=== PATIENT | male | born 1980 | race Caucasian/White ===

== ENCOUNTER 2024-05-08 15:18 | Emergency (ER) | payer MEDICAID, OTHER ==
[~2024-05-08] VITALS: Ht 172.7 cm; Wt 115.0 kg
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
[2024-05-08 16:11] LABS: Basophils # (auto) 0.1 10 ^3/uL (0-0.2); Basophils % (auto) 0.5 % (0.0-2.0); Eosinophils # (auto) 0.1 10 ^3/uL (0-0.8); Hematocrit 49.7 % (41.0-53.0); Hemoglobin 16.7 g/dL (13.5-17.5); Lymphocytes # (auto) 2.8 10 ^3/uL (0.4-5.4); Lymphocytes % (auto) 27.8 % (10.0-50.0); Mean Corpuscular Hemoglobin 32.8 pg (28.0-32.0); Mean Corpuscular Hgb Conc. 33.6 g/dL (32.0-36.0); Mean Corpuscular Volume 97.6 fL (80.0-100.0); Monocytes # (auto) 0.8 10 ^3/uL (0-1.3); Monocytes % (auto) 8.5 % (0.0-12.0); Neutrophils # (auto) 6.2 10 ^3/uL (1.6-8.6); Neutrophils % (auto) 62.2 % (37.0-80.0); Nucleated Red Blood Cells % 0.1 %; Platelet Count (auto) 266 10^3/uL (140-450); White Blood Cell 9.9 10^3/uL (4.4-10.8)
--- NOTE | 2024-05-08 16:27 | DVH ---
CLINICAL INDICATION: injury TECHNIQUE: 3-view right foot XY R ANKLE 3 VIEW Comparison: None FINDINGS/IMPRESSION: : There is a fracture of the medial cuneiform of the right foot which is mildly distracted.
--- NOTE | 2024-05-08 16:27 | DVH ---
CLINICAL INDICATION: injury TECHNIQUE: XY R ANKLE 3 VIEW Comparison: None FINDINGS/IMPRESSION: : There is no evidence of acute fracture or dislocation. Soft tissues are unremarkable.
[2024-05-08 16:38] LABS: Calcium 10.7 mg/dL (8.7-10.4); Chloride 102 mmol/L (98-107); Potassium 4.2 mmol/L (3.5-5.1); Sodium 140 mmol/L (136-145)
--- NOTE | 2024-05-08 16:43 | DVH ---
Right lower extremity venous duplex Clinical History: pain swelling injury Comparison: None Technique: Duplex Doppler evaluation of the deep venous system of the right lower extremity from the common femo ral vein to the popliteal vein including color Doppler and spectral/pulsed waveform analysis was perf ormed. Findings: The common femoral vein demonstrates appropriate compressibility and waveform variability. There is compressibility/patency of the great saphenous vein at the proximal thigh. The femoral vein demonstrates appropriate compressibility and waveform variability. The deep femoral vein demonstrates appropriate compressibility and waveform variability. The popliteal vein demonstrates appropriate compressibility and waveform variability. There is normal compressibility at the tibioperoneal trunk. Impression: 1. No right femoropopliteal venous thrombosis. 2. Contralateral common femoral vein is patent.
[2024-05-08 16:48] LABS: Aspartate Aminotransferase 20 U/L (13-40)
[2024-05-08 16:49] LABS: Alanine Aminotransferase 33 U/L (7-40); Albumin 5.1 g/dL (3.2-4.8)
[2024-05-08 16:57] LABS: Anion Gap 12 (5-15); Carbon Dioxide 26 mmol/L (20-31)
[2024-05-08 17:05] LABS: Lactic Acid w/Reflex 3.1 mmol/L (0.4-2.0)
[2024-05-08 17:11] LABS: Alkaline Phosphatase 88 U/L (46-116); BUN/Creatinine Ratio 15.8 (10.0-20.0); Blood Urea Nitrogen 19 mg/dL (9-23); Glucose 124 mg/dL (74-106)
[2024-05-08 17:12] LABS: Bilirubin, Total 0.8 mg/dL (0.2-1.0); CRP High Sensitivity 0.65 mg/dL (<1.0); Total Protein 7.5 g/dL (5.7-8.2)
[2024-05-08 17:32] LABS: Erythrocyte Sedimentation Rate 8 mm/hr (0-20)
[2024-05-08] MEDS: SODIUM CHLORIDE 0.9% 1,000 ML IV ONE (20:45)
[2024-05-08 20:56] VITALS: BP 118/70; TEMP 98.6
[2024-05-08 21:10] VITALS: PULSE 94; RESP 20; O2SAT 95
== END 2024-05-08 22:59 | disposition home or self-care (01) ==
LOC: ER 15:27
DX: S92.241A Displaced fracture of medial cuneiform of right foot, initial encounter for closed fracture (principal); Z98.890 Other specified postprocedural states; X58.XXXA Exposure to other specified factors, initial encounter; Y93.89 Activity, other specified; Y92.89 Other specified places as the place of occurrence of the external cause; Y99.8 Other external cause status
CPT/HCPCS: 29515; 36415; 73610; 73630; 80053; 82550; 83605; 84484; 85025; 85652; 86141; 93971; 96360; 99284; J7030

== ENCOUNTER 2024-05-14 07:58 | Emergency (ER) | payer MEDICAID ==
[~2024-05-14] VITALS: Ht 172.7 cm; Wt 106.3 kg
--- NOTE | 2024-05-14 08:49 | ED.PDOC ---
Musculoskeletal HPI Comments 43 year old male presents for follow up on recent fracture Seen 05/08 for a right medial cuneiform of the right foot Has not seen PCP Denies any complaint Chief Complaint: Lower Extremity Time Seen by MD: 08:31 Primary Care Provider: NONE Reviewed Notes: Nurses Notes, Medications, Allergies Allergies: Coded Allergies: NO KNOWN ALLERGIES (Unverified , 05/08/24) Information Source: Patient Mode of Arrival: Ambulatory Past Medical History PAST MEDICAL HISTORY: Denies Surgical History: Denies all surgeries Family History Family History: Unknown Social History Smoker: Unknown Alcohol: Unknown Drugs: Unknown Lives In: Home All Other Systems: Reviewed and Negative (Per HPI) Physical Exam General Appearance: No Apparent Distress, Normal HEENT: Normal ENT Inspection, Pharynx Normal, TMs Normal Neck: Full Range of Motion, Non-Tender, Normal, Normal Inspection Respiratory: Chest Non-Tender, Lungs Clear, No Accessory Muscle Use, No Respiratory Distress, Normal Breath Sounds Cardiovascular: No Murmur, No Gallop, Regular Rate/Rhythm Breast Exam: Deferred Gastrointestinal: No Organomegaly, Non Tender, No Pulsatile Mass, Normal Bowel Sounds, Soft Genitalia: Deferred Pelvic: Deferred Rectal: Deferred Extremities: No calf tenderness, Normal capillary refill, Normal inspection, Normal range of motion, Non-tender, No pedal edema Musculoskeletal : Location: Right Extremity Location: Foot (Splint in place. Neuro sensation intact) Apperance: Normal Neurologic: Alert, No Motor Deficits, Normal Affect, Normal Mood, No Sensory Deficits Cerebellar Function: Normal Reflexes: Normal Skin: Dry, Normal Color, Warm Lymphatic: No Adenopathy Was a procedure done? Was a procedure done?: No Differential Diagnosis EXT Differential Diagnosis: Fracture X-Ray, Labs, Meds, VS Vital Signs Date Time Temp Pulse Resp B/P (MAP) Pulse Ox O2 Delivery O2 Flow Rate FiO2 05/14/24 08:50 119 16 96 Room Air 05/14/24 08:50 98.6 119 16 138/78 (98) 96 98.6 05/14/24 08:04 98.6 119 16 138/78 (98) 96 98.6 X-Ray, Labs, Meds, VS Comment Patient is stable for discharge at this time. External notes reviewed. Test results and diagnostic imaging interpreted. All diagnostic findings, discharge care, education and instructions provided Follow-up with PCP in 2 to 3 days Patient verbalized understanding and agreed to treatment plan Vital signs stable, afebrile, no acute distress noted Patient ambulatory with strong steady gait Advised to return precautions for any new or worsening symptoms, return to ER immediately for re-evaluation Patient is aware that the purpose of this visit was for an acute medical emergency requiring emergent stabilization. Chronic conditions, including malignancies have not been ruled out. Patient is instructed to follow up with PCP as directed and discharge instructions for continued care and workup. If unable to arrange follow-up, patient is to return to the emergency department for reassessment. Patient (parent or legal guardian if applicable) was given verbal and written discharge instructions and acknowledges understanding. Time of 1ST Reevaluation: 08:48 Reevaluation 1ST: Improved Patient Education/Counseling: Diagnosis, Treatment Family Education/Counseling: Diagnosis, Treatment Departure 1 Departure Time of Disposition: 08:48 Impression: Primary Impression: Foot fracture, right Qualified Codes: S92.901A - Unspecified fracture of right foot, initial encounter for closed fracture Disposition: 01 HOME / SELF CARE / HOMELESS Condition: Stable Critical Care Note Critical Care Time?: No Stability Stability form required: No Heart Score Heart Score: Heart Score Response (Comments) Value History N/A 0 EKG N/A 0 Age N/A 0 Risk Factors N/A 0 Troponin N/A 0 Total 0 [employer] May 14, 2024 08:49
[2024-05-14 08:50] VITALS: BP 138/78; PULSE 119; RESP 16; TEMP 98.6; O2SAT 96
== END 2024-05-14 08:54 | disposition home or self-care (01) ==
LOC: ER 07:58
DX: S92.241D Displaced fracture of medial cuneiform of right foot, subsequent encounter for fracture with routine healing (principal); X58.XXXD Exposure to other specified factors, subsequent encounter